=== PATIENT | male | born 1940 | race Caucasian/White ===

== ENCOUNTER 2022-12-09 14:09 | Inpatient (IN) | payer OTHER ==
[~2022-12-09] VITALS: Ht 180.3 cm; Wt 76.8 kg
[2022-12-09 14:13] VITALS: BP_SYST 155; PULSE 105; RESP 18; TEMP 98.3; O2SAT 97
[2022-12-09] MEDS ORDERED: cefTRIAXone 1 GM IVPB PREMIX 50 ML IV ONE (14:30)
[2022-12-09] MEDS ORDERED: MORPHINE 4 MG INJ. 4 MG/ML VIAL IVP ONE (14:45)
[2022-12-09 15:12] LABS: BASOPHILS # (AUTO) 0.1 K/uL (0.0-0.2); BASOPHILS % (AUTO) 0.7 % (0.0-2.0); EOSINOPHILS % (AUTO) 0.3 % (0.0-4.0); HEMATOCRIT 43.9 % (36-54); HEMOGLOBIN 14.8 g/dL (14.0-18.0); LYMPHOCYTES # (AUTO) 1.2 K/uL (1.0-5.5); LYMPHOCYTES % (AUTO) 11.7 % (20.5-51.5); MEAN CORPUSCULAR HEMOGLOBIN 28 pg (27-31); MEAN CORPUSCULAR HGB CONC 34 % (32-36); MEAN CORPUSCULAR VOLUME 84 fL (79.0-98.0); MONOCYTES # (AUTO) 0.8 K/uL (0.0-1.0); MONOCYTES % (AUTO) 8.2 % (1.7-9.3); NEUTROPHILS # (AUTO) 7.9 K/uL (1.8-7.7); NEUTROPHILS % (AUTO) 79.1 % (40.0-70.0); PLATELET COUNT (AUTO) 166 K/uL (130-430); RED BLOOD CELL COUNT(AUTO) 5.22 MIL/uL (4.2-6.2); RED CELL DISTRIBUTION WIDTH 13.4 % (9.0-15.0); WHITE BLOOD COUNT (AUTO) 9.9 K/uL (4.8-10.8)
[2022-12-09 15:36] LABS: ALANINE AMINOTRANSFERASE 9 U/L (12-78); ALBUMIN 3.1 g/dL (3.4-4.8); ANION GAP 11 (5-15); ASPARTATE AMINOTRANSFERASE 36 U/L (10-37); CALCIUM 8.8 mg/dL (8.4-11.0); CHLORIDE 92 mmol/L (98-107); CREATININE 1.36 mg/dL (0.55-1.30); LIPASE 69 U/L (73-393); TOTAL BILIRUBIN 1.1 mg/dL (0.0-1.0); UREA NITROGEN, BLOOD 9 mg/dL (8-21)
[2022-12-09 15:46] LABS: GLUCOSE 467 mg/dL (74-106)
[2022-12-09] MEDS ORDERED: NACL 0.9% 1,000 ML IV ONE (16:15)
[2022-12-09 17:07] LABS: BILIRUBIN,URINE NEGATIVE (NEGATIVE); BLOOD, URINE NEGATIVE (NEGATIVE); CLARITY/URINE CLEAR (CLEAR); GLUCOSE,URINE 3+ (NEGATIVE); KETONES,URINE TRACE (NEGATIVE); LEUKOCYTE ESTERASE ,URINE NEGATIVE (NEGATIVE); NITRITE, URINE NEGATIVE (NEGATIVE); PROTEIN URINE NEGATIVE (NEGATIVE); UROBILINOGEN,URINE 0.2 (0.2-1.0)
[2022-12-09 17:09] LABS: COLOR,URINE STRAW (YELLOW)
[2022-12-09] MEDS ORDERED: INSULIN NPH/REGULAR 70-30, 100 UNITS/ML, 3 ML VIAL SUBCUT ONE (17:15)
[2022-12-09] MEDS ORDERED: MORPHINE 2 MG/ML INJ. SYRINGE IVP PRN ×2 (17:15)
[2022-12-09] MEDS ORDERED: ACETAMINOPHEN 325 MG TABLET PO PRN ×2 (17:15)
[2022-12-09] MEDS ORDERED: MAGNESIUM SULFATE 50 ML IV PRN (17:15)
[2022-12-09] MEDS ORDERED: LORazepam 2 MG/ML VIAL IVP PRN (17:15)
[2022-12-09] MEDS ORDERED: MUPIROCIN 2% TOPICAL OINTMENT 22 GM NS PRN (17:15)
[2022-12-09] MEDS ORDERED: ONDANSETRON HCL 4 MG/2 ML VIAL IVP PRN (17:15)
[2022-12-09] MEDS ORDERED: DEXTROSE 50% JECT 50 ML DISP.SYRIN IVP PRN (17:15)
[2022-12-09] MEDS ORDERED: METOPROLOL TARTRATE 25 MG TABLET PO ONE (17:15)
[2022-12-09] MEDS ORDERED: DOCUSATE SODIUM 100 MG CAPSULE PO PRN (17:15)
[2022-12-09] MEDS ORDERED: POTASSIUM CHLORIDE 20 MEQ TAB.PRT.SR PO PRN (17:15)
[2022-12-09 17:39] LABS: BACTERIA,URINE RARE /HPF (None Seen); MUCUS,URINE None Seen /LPF (None Seen); RBC,URINE 0-3 /HPF (0-3); WBC,URINE 0-3 /HPF (0-3)
[2022-12-09 20:05] VITALS: BP_SYST 157; PULSE 100; RESP 20; TEMP 97.3
[2022-12-09] MEDS: METOPROLOL TARTRATE 25 MG TABLET PO SCH (21:08)
[2022-12-09] MEDS: TAMSULOSIN HCL 0.4 MG CAP PO SCH (21:09)
[2022-12-09 21:15] VITALS: O2SAT 98
[2022-12-09] MEDS: INSULIN LISPRO SLIDING SCALE 100 UNITS/ML, 3 ML VIAL (humaLOG) SUBCUT PRN (21:17)
[2022-12-09] MEDS: INSULIN NPH/REGULAR 70-30, 100 UNITS/ML, 3 ML VIAL SUBCUT SCH (21:19)
[2022-12-09] MEDS: HEPARIN SODIUM,PORCINE 5,000 UNITS/ML VIAL SUBCUT SCH (21:20)
[2022-12-10] VITALS: BP_SYST 164; PULSE 95; RESP 18; TEMP 96.7; O2SAT 97
[2022-12-10] MEDS ORDERED: cloNIDine HCL 0.1 MG TABLET PO ONE (00:45)
[2022-12-10] MEDS: NACL 0.9% 1,000 ML IV SCH ×3 (01:46→22:55)
[2022-12-10 05:33] LABS: BASOPHILS % (AUTO) 0.5 % (0.0-2.0); EOSINOPHILS % (AUTO) 0.1 % (0.0-4.0); HEMATOCRIT 39.8 % (36-54); HEMOGLOBIN 13.8 g/dL (14.0-18.0); LYMPHOCYTES # (AUTO) 1.2 K/uL (1.0-5.5); LYMPHOCYTES % (AUTO) 11.6 % (20.5-51.5); MEAN CORPUSCULAR HEMOGLOBIN 29 pg (27-31); MEAN CORPUSCULAR HGB CONC 35 % (32-36); MEAN CORPUSCULAR VOLUME 84 fL (79.0-98.0); MONOCYTES # (AUTO) 0.7 K/uL (0.0-1.0); MONOCYTES % (AUTO) 7.4 % (1.7-9.3); NEUTROPHILS % (AUTO) 80.4 % (40.0-70.0); PLATELET COUNT (AUTO) 184 K/uL (130-430); RED BLOOD CELL COUNT(AUTO) 4.74 MIL/uL (4.2-6.2); RED CELL DISTRIBUTION WIDTH 13.5 % (9.0-15.0); WHITE BLOOD COUNT (AUTO) 9.9 K/uL (4.8-10.8)
[2022-12-10 05:42] LABS: ANION GAP 8 (5-15); CALCIUM 8.2 mg/dL (8.4-11.0); CHLORIDE 99 mmol/L (98-107); CREATININE 1.41 mg/dL (0.55-1.30); GLUCOSE 124 mg/dL (74-106); UREA NITROGEN, BLOOD 12 mg/dL (8-21)
[2022-12-10 08:41] VITALS: BP_SYST 82; PULSE 74; RESP 16; TEMP 97; O2SAT 98
[2022-12-10 11:01] VITALS: BP_SYST 145; PULSE 85; RESP 18; TEMP 97; O2SAT 94
[2022-12-10] MEDS: METOPROLOL TARTRATE 25 MG TABLET PO SCH ×2 (11:06→21:00)
[2022-12-10] MEDS: HEPARIN SODIUM,PORCINE 5,000 UNITS/ML VIAL SUBCUT SCH ×2 (11:07→21:00)
[2022-12-10] MEDS: INSULIN NPH/REGULAR 70-30, 100 UNITS/ML, 3 ML VIAL SUBCUT SCH ×2 (11:08→21:00)
[2022-12-10] MEDS: INSULIN LISPRO SLIDING SCALE 100 UNITS/ML, 3 ML VIAL (humaLOG) SUBCUT PRN (11:11)
[2022-12-10 15:58] VITALS: BP_SYST 135; PULSE 79; RESP 18; TEMP 97; O2SAT 95
[2022-12-10 19:00] VITALS: BP_SYST 97; PULSE 85; TEMP 96.1; O2SAT 97
[2022-12-10] MEDS: TAMSULOSIN HCL 0.4 MG CAP PO SCH (21:00)
[2022-12-10] MEDS: ZOLPIDEM TARTRATE 5 MG TABLET PO PRN (22:00)
[2022-12-11] VITALS (7 sets, daily range): BP systolic 97–141; PULSE 78–110; RESP 14–23; TEMP 97–98.4; O2SAT 94–99
[2022-12-11 05:55] LABS: BASOPHILS # (AUTO) 0.1 K/uL (0.0-0.2); BASOPHILS % (AUTO) 0.7 % (0.0-2.0); EOSINOPHILS % (AUTO) 0.1 % (0.0-4.0); HEMATOCRIT 39.9 % (36-54); HEMOGLOBIN 13.7 g/dL (14.0-18.0); LYMPHOCYTES # (AUTO) 1.3 K/uL (1.0-5.5); LYMPHOCYTES % (AUTO) 11.9 % (20.5-51.5); MEAN CORPUSCULAR HEMOGLOBIN 29 pg (27-31); MEAN CORPUSCULAR HGB CONC 34 % (32-36); MEAN CORPUSCULAR VOLUME 85 fL (79.0-98.0); MONOCYTES % (AUTO) 8.9 % (1.7-9.3); NEUTROPHILS # (AUTO) 8.8 K/uL (1.8-7.7); NEUTROPHILS % (AUTO) 78.4 % (40.0-70.0); PLATELET COUNT (AUTO) 180 K/uL (130-430); RED BLOOD CELL COUNT(AUTO) 4.72 MIL/uL (4.2-6.2); WHITE BLOOD COUNT (AUTO) 11.2 K/uL (4.8-10.8)
[2022-12-11 06:21] LABS: ANION GAP 7 (5-15); CALCIUM 8.2 mg/dL (8.4-11.0); CHLORIDE 102 mmol/L (98-107); CREATININE 1.74 mg/dL (0.55-1.30); GLUCOSE 52 mg/dL (74-106); UREA NITROGEN, BLOOD 18 mg/dL (8-21)
[2022-12-11] MEDS: METOPROLOL TARTRATE 25 MG TABLET PO SCH ×2 (08:50→21:14)
[2022-12-11] MEDS: HEPARIN SODIUM,PORCINE 5,000 UNITS/ML VIAL SUBCUT SCH ×2 (08:52→21:18)
[2022-12-11] MEDS: INSULIN NPH/REGULAR 70-30, 100 UNITS/ML, 3 ML VIAL SUBCUT SCH ×2 (08:55→21:18)
[2022-12-11] MEDS: ZOLPIDEM TARTRATE 5 MG TABLET PO PRN (21:13)
[2022-12-11] MEDS: TAMSULOSIN HCL 0.4 MG CAP PO SCH (21:14)
[2022-12-11] MEDS: INSULIN LISPRO SLIDING SCALE 100 UNITS/ML, 3 ML VIAL (humaLOG) SUBCUT PRN (21:16)
[2022-12-11] MEDS ORDERED: METOPROLOL TARTRATE 25 MG TABLET PO ONE (23:45)
[2022-12-12 01:23] VITALS: BP_SYST 102; PULSE 142; RESP 17; TEMP 98.7; O2SAT 98
[2022-12-12 06:05] LABS: BASOPHILS # (AUTO) 0.1 K/uL (0.0-0.2); BASOPHILS % (AUTO) 0.6 % (0.0-2.0); EOSINOPHILS % (AUTO) 0.2 % (0.0-4.0); HEMATOCRIT 36.4 % (36-54); HEMOGLOBIN 12.6 g/dL (14.0-18.0); LYMPHOCYTES # (AUTO) 1.1 K/uL (1.0-5.5); LYMPHOCYTES % (AUTO) 11.6 % (20.5-51.5); MEAN CORPUSCULAR HEMOGLOBIN 29 pg (27-31); MEAN CORPUSCULAR HGB CONC 35 % (32-36); MEAN CORPUSCULAR VOLUME 84 fL (79.0-98.0); MONOCYTES # (AUTO) 0.8 K/uL (0.0-1.0); MONOCYTES % (AUTO) 8.8 % (1.7-9.3); NEUTROPHILS # (AUTO) 7.2 K/uL (1.8-7.7); NEUTROPHILS % (AUTO) 78.8 % (40.0-70.0); PLATELET COUNT (AUTO) 169 K/uL (130-430); RED BLOOD CELL COUNT(AUTO) 4.33 MIL/uL (4.2-6.2); RED CELL DISTRIBUTION WIDTH 13.5 % (9.0-15.0); WHITE BLOOD COUNT (AUTO) 9.1 K/uL (4.8-10.8)
[2022-12-12 06:42] LABS: ANION GAP 6 (5-15); CALCIUM 7.9 mg/dL (8.4-11.0); CHLORIDE 100 mmol/L (98-107); CREATININE 1.63 mg/dL (0.55-1.30); GLUCOSE 166 mg/dL (74-106); UREA NITROGEN, BLOOD 23 mg/dL (8-21)
[2022-12-12 08:00] VITALS: O2SAT 98
[2022-12-12 08:16] VITALS: BP_SYST 100; PULSE 149; RESP 20; TEMP 96.9
[2022-12-12] MEDS: METOPROLOL TARTRATE 25 MG TABLET PO SCH ×2 (08:39→21:26)
[2022-12-12] MEDS: INSULIN NPH/REGULAR 70-30, 100 UNITS/ML, 3 ML VIAL SUBCUT SCH ×2 (08:43→21:50)
[2022-12-12] MEDS: HEPARIN SODIUM,PORCINE 5,000 UNITS/ML VIAL SUBCUT SCH ×2 (08:44→21:28)
[2022-12-12 11:33] VITALS: BP_SYST 106; PULSE 86; RESP 18; TEMP 98; O2SAT 98
[2022-12-12] MEDS: INSULIN LISPRO SLIDING SCALE 100 UNITS/ML, 3 ML VIAL (humaLOG) SUBCUT PRN ×2 (11:37→21:51)
[2022-12-12 19:00] VITALS: O2SAT 98
[2022-12-12 20:00] VITALS: BP_SYST 144; PULSE 97; RESP 18; O2SAT 98
[2022-12-12] MEDS: TAMSULOSIN HCL 0.4 MG CAP PO SCH (21:25)
[2022-12-13] VITALS (7 sets, daily range): BP systolic 128–140; PULSE 85–109; RESP 16–17; TEMP 97.3–98.1; O2SAT 94–100
[2022-12-13 06:51] LABS: BASOPHILS # (AUTO) 0.1 K/uL (0.0-0.2); BASOPHILS % (AUTO) 0.6 % (0.0-2.0); EOSINOPHILS % (AUTO) 0.6 % (0.0-4.0); HEMATOCRIT 39.3 % (36-54); HEMOGLOBIN 13.5 g/dL (14.0-18.0); LYMPHOCYTES % (AUTO) 11.6 % (20.5-51.5); MEAN CORPUSCULAR HEMOGLOBIN 29 pg (27-31); MEAN CORPUSCULAR HGB CONC 34 % (32-36); MEAN CORPUSCULAR VOLUME 85 fL (79.0-98.0); MONOCYTES # (AUTO) 0.8 K/uL (0.0-1.0); MONOCYTES % (AUTO) 10.3 % (1.7-9.3); NEUTROPHILS # (AUTO) 6.3 K/uL (1.8-7.7); NEUTROPHILS % (AUTO) 76.9 % (40.0-70.0); PLATELET COUNT (AUTO) 180 K/uL (130-430); RED BLOOD CELL COUNT(AUTO) 4.64 MIL/uL (4.2-6.2); RED CELL DISTRIBUTION WIDTH 13.4 % (9.0-15.0); WHITE BLOOD COUNT (AUTO) 8.2 K/uL (4.8-10.8)
[2022-12-13 07:17] LABS: ANION GAP 8 (5-15); CALCIUM 8.1 mg/dL (8.4-11.0); CHLORIDE 102 mmol/L (98-107); CREATININE 1.06 mg/dL (0.55-1.30); GLUCOSE 79 mg/dL (74-106); UREA NITROGEN, BLOOD 20 mg/dL (8-21)
[2022-12-13] MEDS: METOPROLOL TARTRATE 25 MG TABLET PO SCH ×2 (10:15→21:08)
[2022-12-13] MEDS: HEPARIN SODIUM,PORCINE 5,000 UNITS/ML VIAL SUBCUT SCH ×2 (10:16→21:13)
[2022-12-13] MEDS: INSULIN NPH/REGULAR 70-30, 100 UNITS/ML, 3 ML VIAL SUBCUT SCH ×2 (10:18→21:06)
[2022-12-13] MEDS: TAMSULOSIN HCL 0.4 MG CAP PO SCH (21:07)
== END 2022-12-14 00:32 | DRG 694 ==
LOC: SED 14:09 → SMU 17:03 → STU 12-11 23:47 → SMU 12-13 04:07
PROVIDERS: ADMIT General Practice; ATTEND General Practice
DX: N13.30 Unspecified hydronephrosis (principal); E87.1 Hypo-osmolality and hyponatremia; E87.20 Acidosis, unspecified; R33.9 Retention of urine, unspecified; E11.65 Type 2 diabetes mellitus with hyperglycemia; K44.9 Diaphragmatic hernia without obstruction or gangrene; N40.0 Benign prostatic hyperplasia without lower urinary tract symptoms; F02.80 Dementia in other diseases classified elsewhere, unspecified severity, without behavioral disturbance, psychotic disturbance, mood disturbance, and anxiety; I10 Essential (primary) hypertension; E88.09 Other disorders of plasma-protein metabolism, not elsewhere classified; G30.9 Alzheimer's disease, unspecified; Z85.46 Personal history of malignant neoplasm of prostate
CPT/HCPCS: 36415; 70450-TC; 71045; 76376; 76770; 80048; 80053; 81000; 83037; 83605; 83690; 83735; 83880; 84484; 85025; 87040; 87086; 93005; 97110-GP; 97116-GP; 97163-GP; 97530-GP; 99285; G0378; J0696; J1644; J1815; J2060; J2270; J7030